=== PATIENT | female | born 1960 | race Caucasian/White ===

== ENCOUNTER 2018-04-01 12:59 | Inpatient (IN) | payer MEDICARE ==
[2018-04-01] MEDS ORDERED: Morphine 4 MG/ML VIAL ONE (13:18)
[2018-04-01] MEDS ORDERED: Metoprolol Tartrate 50 MG TAB ONE (13:59)
--- NOTE | 2018-04-01 14:02 | RAD ---
RADIOGRAPH CHEST 1 VIEW: Supine HISTORY: 57-year-old female status post acute chest trauma from fall. FINDINGS: There is no air space density, cardiomegaly, or pulmonary edema. The lateral costophrenic angles are sharp. Supine positioning makes this study insensitive for pneumothorax detection. IMPRESSION: No acute pulmonary findings. cristela [] POS: GENET
[2018-04-01] MEDS ORDERED: HYDROcodone/Acetaminophen 7.5/325 mg Tablet PO PRN ×2 (14:12→14:36)
[2018-04-01] MEDS ORDERED: hydrALAZINE 20 MG/ML VIAL SLOW IVP PRN (14:13)
[2018-04-01] MEDS ORDERED: Ondansetron ODT 4 MG TAB PO PRN (14:13)
[2018-04-01] MEDS ORDERED: Dextrose 50% Abboject 50 ML SYRINGE SLOW IVP PRN (14:13)
[2018-04-01] MEDS ORDERED: Ondansetron PF 4 MG/2 ML Vial IVP PRN (14:13)
[2018-04-01] MEDS ORDERED: Dextrose 5% in Water 1,000 ML IV PRN (14:13)
[2018-04-01] MEDS ORDERED: Morphine 2 MG/ML SYRINGE ONE (14:33)
[2018-04-01] MEDS ORDERED: Ketorolac Tromethamine 30 MG/ML VIAL ONE (14:33)
[2018-04-01] MEDS ORDERED: Fentanyl 100 MCG/2 ML VIAL SLOW IVP PRN (16:08)
[2018-04-01] MEDS ORDERED: CEFAZOLIN/Water 2 GM/20 ML SYRINGE SLOW IVP SCH (16:15)
[2018-04-01] MEDS ORDERED: CEFAZOLIN 2 GM/50 ML-DEXTROSE 2 GM in Premix Bag 1 BAG IVPB SCH (16:30)
[2018-04-01] MEDS: Morphine 2 MG/ML SYRINGE SLOW IVP PRN ×2 (16:57→22:35)
[2018-04-01 17:06] LABS: INR-International Normal Ratio 1.1; Prothrombin Time 13.9 SEC (12.0-14.7)
[2018-04-01 18:16] VITALS: BMI 19.4
[2018-04-01] MEDS: Ketorolac Tromethamine 30 MG/ML VIAL IVP SCH ×2 (18:28→20:12)
[2018-04-01] MEDS: HYDROcodone/Acetaminophen 7.5/325 mg Tablet PO SCH ×2 (18:28→21:11)
[2018-04-01 19:06] LABS: Bilirubin Negative (Negative); Blood, Urine Negative (Negative); Clarity CLOUDY (Clear); Glucose, Urine (Dipstick) Negative (Negative); Leukocyte Moderate (Negative); Nitrite Positive (Negative); Protein, Urine (Dipstick) Negative (Neg-Trace); Specific Gravity, Urine 1.007 (1.002-1.036); pH, Urine 6.5 (5.0-9.0)
[2018-04-01 19:07] LABS: Hyaline Casts/LPF 0-3 HYALINE CAST LPF (0-3 Hyaline); RBC/HPF 0-3 HPF (0-3); Squamous Epithelial 0-3 HPF (0-3)
[2018-04-01 19:16] LABS: Osmolality, Urine 233 mOsm/kg (300-900)
[2018-04-01 19:19] LABS: Bacteria/HPF 4+ HPF (None Seen)
[2018-04-01 19:29] LABS: Sodium, Urine 21 mmol/L (Not Available)
[2018-04-01] MEDS: Famotidine 20 MG TAB PO SCH (20:09)
--- NOTE | 2018-04-01 20:12 | HP ---
TRAUMA SURGEON: Dr. Antunez. TRAUMA ACTIVATION: Not applicable. HISTORY OF PRESENT ILLNESS: Nusrat Mina is a 57-year-old female, who presented to [facility] as a transfer from [place]. Per the patient, she was letting her dogs outside of their home, which has 5 steps down. She was on the second step and jumped off; however, her knee gave out and she fell landing on her right side. She denies head trauma or loss of consciousness. She was seen and evaluated in [facility] and found to have a right hip fracture. She was transferred to our facility for definitive care. Orthopedic Surgery has been notified and Trauma Service was asked to admit. Upon my evaluation, the patient has a chief complaint of 6/10 right hip discomfort. Relieved with pain medications and rest, worsened with movement. ALLERGIES: NONE. HOME MEDICATIONS: Include, 1. Metoprolol 50 mg p.o. daily. 2. Howard 5 mg/325 t.i.d. 3. Xanax 1 mg at bedtime. 4. Synthroid 112 mcg daily. PAST MEDICAL HISTORY: Hypertension, hypothyroidism, chronic bilateral knee pain, and anxiety. SURGICAL HISTORY: Right elbow surgery, gastric bypass, and cholecystectomy. SOCIAL HISTORY: Lives at home with her spouse. Endorses occasional alcohol use. She is a current smoker, 1 pack per day x45 years. Denies illicit drug use. FAMILY HISTORY: Significant for father from leukemia and mother of coronary artery disease and hypertension. REVIEW OF SYSTEMS: A 10-point review of systems was performed and negative except as indicated in the HPI. Specifically, the patient denied any fevers, chills, nausea, vomiting, dizziness, presyncopal symptoms, chest pain, shortness of breath, lethargy, or increasing fatigue as well as altered mental status. PHYSICAL EXAMINATION: VITAL SIGNS: On evaluation, temperature 98.8, pulse 71, respirations 16, O2 saturation 97% on room air, and blood pressure 176/111. GENERAL: Resting in bed, in no acute distress. HEENT: Head; normocephalic, atraumatic. Mucous membranes are mildly dry. NECK: Supple. Trachea is midline. There is no midline tenderness to palpation. CHEST: Atraumatic. Nontender to palpation. Normal work of breathing. Symmetric rise. LUNGS: Clear to auscultation bilaterally. CARDIOVASCULAR: Regular rate and rhythm. No obvious murmurs, rubs, or gallops. GI: Abdomen is soft, nontender, and nondistended. MUSCULOSKELETAL: Bilateral upper extremities within normal limits. Left lower extremity within normal limits. Right lower extremity is shortened and externally rotated. NEUROLOGIC: GCS is 15 and no focal deficit is noted. SKIN: Turgor is normal. LABORATORY FINDINGS: WBC 6.8, hemoglobin 15.8, hematocrit 43.1, and platelet count 153. Sodium 127, potassium 4.5, chloride 93, carbon dioxide 22, BUN 5, creatinine 0.65, and glucose 109. AST 78, ALT 70, and creatine kinase 204. Troponin less than 0.010. Serum osmolality 271. TSH 0.044 and free T4 of 1.38. RADIOGRAPHIC FINDINGS: Chest x-ray was negative for acute traumatic injury or cardiopulmonary process. X-ray of the hip with right intertrochanteric femur fracture. X-ray of the femur, official read is pending. X-ray of the pelvis, official read is pending, but demonstrates right intertrochanteric femur fracture. ASSESSMENT: 1. Status post mechanical fall. 2. Right hip fracture. 3. Acute traumatic pain. 4. Hyponatremia. 5. Elevated liver enzymes. 6. Elevated creatine kinase. 7. History of hypertension. 8. History of hypothyroidism. 9. History of chronic pain, on chronic narcotics. 10. History of anxiety. PLAN: Admit to Trauma Services. Orthopedic Surgery plans for operative intervention tomorrow. The patient should be n.p.o. after midnight. Pain control with p.o. and IV analgesics. Urine sodium and osmolality to help differentiate source of hyponatremia. A.m. labs, trend abnormal CK and liver enzymes. Postoperative PT and OT. DVT and gastritis prophylaxis as appropriate. Plan for admission was discussed with the patient and family at bedside. She is a full code. All questions were answered at the time of this dictation. Trauma attending has been notified of admission. Job ID: [id number]
[2018-04-01] MEDS: Sodium Chloride 0.9% 1,000 ML IV SCH ×2 (20:20→21:15)
--- NOTE | 2018-04-01 20:36 | HP ---
HISTORY OF PRESENT ILLNESS: She is a very pleasant 57-year-old woman who fell going down her steps today. She suffered a fracture of her femoral neck. PAST MEDICAL HISTORY: Positive for hypertension, gastric bypass, chronic pain. ALLERGIES: NONE. CURRENT MEDICATIONS: 1. Metoprolol. 2. Mcgregor. 3. Xanax. SOCIAL HISTORY: She does not smoke cigarettes, does not use illicit drugs, and drinks only occasionally. REVIEW OF SYSTEMS: Positive for hip pain. Negative for loss of consciousness, nausea, or vomiting. PHYSICAL EXAMINATION: GENERAL: Shows pleasant woman, in no distress. HEENT: Normocephalic and atraumatic. LUNGS: Clear. HEART: Regular. ABDOMEN: Soft and nontender. MUSCULOSKELETAL: Right hip external rotation. DIAGNOSTIC DATA: Radiographs show a displaced femoral neck fracture. PLAN: Total hip arthroplasty. She understands the risks of infection, blood clot, transfusion, , dislocation, and leg length inequality. She elected to proceed with surgery. Job ID: [id number]
[2018-04-01] MEDS: Senokot S 8.6-50 MG TAB PO SCH (21:12)
[2018-04-02] MEDS: HYDROcodone/Acetaminophen 7.5/325 mg Tablet PO SCH ×2 (01:57→12:15)
[2018-04-02] MEDS: Levothyroxine Sodium 112 MCG TAB PO SCH ×2 (01:59→05:57)
[2018-04-02] MEDS: Morphine 2 MG/ML SYRINGE SLOW IVP PRN ×2 (02:19→05:56)
[2018-04-02] MEDS: Ketorolac Tromethamine 30 MG/ML VIAL IVP SCH ×4 (02:20→20:13)
[2018-04-02 05:56] LABS: #Lymphocytes 1.2 thou/uL (1.20-3.40); #Monocytes 0.4 thou/uL (0.11-0.59); %Basophils 0.6 % (0.0-1.0); %Eosinophils 1.2 % (0.0-10.0); %Lymphocytes 32.2 % (21.0-51.0); %Monocytes 11.6 % (0.0-10.0); %Neutrophils 54.4 % (42.0-75.0); Hemoglobin 14.4 g/dL (12.0-16.0); Mean Corpuscular HGB CONC 34.5 g/dL (32.0-36.0); Mean Corpuscular Hemoglobin 34.1 pg (27.0-31.0); Mean Corpuscular Volume 98.9 fL (78.0-98.0); Mean Platelet Volume 7.5 fL (7.4-10.4); Platelet Count 128 thou/uL (130-400); RBC Distribution Width 11.1 % (11.5-14.5); Red Blood Cell (RBC) Count 4.22 mill/uL (4.20-5.40); White Blood Cell (WBC) Count 3.7 thou/uL (4.8-10.8)
[2018-04-02 06:13] LABS: Phosphorus 2.9 mg/dL (2.3-4.7)
[2018-04-02 06:15] LABS: ALT (SGPT) 59 U/L (8-55); AST (SGOT) 62 U/L (5-34); Albumin 3.6 g/dL (3.5-5.0); Alkaline Phosphatase 73 U/L (40-150); Anion Gap 10 mmol/L (10-20); BUN (Urea Nitrogen) 7 mg/dL (9.8-20.1); Bilirubin, Total 1.2 mg/dL (0.2-1.2); CK (CPK) 123 U/L (29-168); Calc. Creatinine Clearance 92 mL/min (70-130); Calcium 8.9 mg/dL (7.8-10.44); Carbon Dioxide 26 mmol/L (22-29); Chloride 101 mmol/L (98-107); Estimated GFR-MDRD Greater than 90; Globulin 3.6 g/dL (2.4-3.5); Glucose 97 mg/dL (70-105); Potassium 3.9 mmol/L (3.5-5.1); Protein, Total 7.2 g/dL (6.0-8.3); Sodium 133 mmol/L (136-145)
[2018-04-02] MEDS ORDERED: Vancomycin HCl 1 GM in Premix Bag 1 BAG IVPB SCH (07:00)
[2018-04-02] MEDS: Metoprolol Tartrate 50 MG TAB PO SCH ×2 (07:44→20:16)
[2018-04-02] MEDS ORDERED: CEFAZOLIN 2 GM/50 ML BAG ONE (08:04)
[2018-04-02] MEDS ORDERED: Fentanyl 100 MCG/2 ML VIAL ONE ×5 (08:04→11:33)
[2018-04-02] MEDS ORDERED: Tranexamic Acid 1,000 MG/10 ML VIAL ONE (08:34)
[2018-04-02] MEDS ORDERED: Sodium Chloride 0.9% 100 ML ONE (08:34)
[2018-04-02] MEDS ORDERED: HYDROcodone/Acetaminophen 10/325 mg Tablet PO PRN (08:51)
[2018-04-02] MEDS ORDERED: Ondansetron PF 4 MG/2 ML Vial IVP PRN (08:51)
[2018-04-02] MEDS ORDERED: diphenhydrAMINE 25 MG CAP PO PRN (08:51)
[2018-04-02] MEDS ORDERED: Acetaminophen 325 MG TAB PO PRN (08:51)
[2018-04-02] MEDS ORDERED: Zolpidem Tartrate 5 MG TAB PO PRN (08:51)
[2018-04-02] MEDS ORDERED: Promethazine HCl 25 MG/ML VIAL IM PRN ×3 (08:51→10:57)
[2018-04-02] MEDS ORDERED: CEFAZOLIN/Water 2 GM/20 ML SYRINGE SLOW IVP SCH (09:00)
[2018-04-02] MEDS ORDERED: Midazolam HCl 2 mg/2 ml Vial ONE (09:08)
[2018-04-02] MEDS ORDERED: PROPOFOL 200 MG/20 ML VIAL ONE (09:56)
[2018-04-02] MEDS ORDERED: Ondansetron PF 4 MG/2 ML Vial ONE (09:56)
[2018-04-02] MEDS ORDERED: Lidocaine 1% PF 5 ML VIAL ONE (09:56)
--- NOTE | 2018-04-02 10:12 | PRG ---
DATE OF SERVICE: Ms. Mina is admitted with right femoral neck fracture. Please see Brittany Sharif's full H and P for details. Plan is ORIF of right hip fracture today and then PT/OT after. Trauma will continue to follow. Job ID: [id number]
[2018-04-02] MEDS ORDERED: Promethazine HCl 25 MG/ML VIAL SLOW IVP PRN ×2 (10:54→10:57)
[2018-04-02] MEDS ORDERED: Ondansetron HCl/PF 4 MG/2 ML Vial IVP PRN ×2 (10:54→10:57)
[2018-04-02] MEDS ORDERED: HYDROmorphone 2 MG/ML VIAL SLOW IVP PRN (10:57)
[2018-04-02] MEDS ORDERED: PACU-Morphine 4MG/ML VIAL SLOW IVP PRN (10:57)
[2018-04-02] MEDS ORDERED: Promethazine HCl 25 MG/ML VIAL ONE (11:00)
[2018-04-02] MEDS ORDERED: HYDROmorphone 2 MG/ML VIAL ONE (11:10)
[2018-04-02] MEDS ORDERED: hydrALAZINE 20 MG/ML VIAL ONE (11:17)
--- NOTE | 2018-04-02 11:37 | RAD ---
TWO VIEWS OF THE RIGHT HIP: COMPARISON: 04/01/2018. HISTORY: Right hip arthroplasty after right femoral neck fracture. FINDINGS: Two views of the right hip show the patient to have undergone interval right hip prosthesis placement . There is no perihardware lucency or fracture. Air in the soft tissues is from recent surgery. IMPRESSION: Status post right hip arthroplasty without evidence of complication. POS: [place]
[2018-04-02 12:03] LABS: Bilirubin Negative (Negative); Blood, Urine Moderate (Negative); Clarity TURBID (Clear); Glucose, Urine (Dipstick) Negative (Negative); Leukocyte Large (Negative); Nitrite Positive (Negative); Protein, Urine (Dipstick) 30 mg/dL (Neg-Trace); Specific Gravity, Urine 1.009 (1.002-1.036); pH, Urine 7.5 (5.0-9.0)
[2018-04-02 12:11] LABS: Yeast-AUWi Flag 57.5 (0-25.0)
[2018-04-02] MEDS: Aspirin 81 mg Enteric Coated Tablet PO SCH ×2 (12:11→20:16)
[2018-04-02] MEDS: Ferrous Gluconate 324 MG TAB PO SCH ×2 (12:11→20:17)
[2018-04-02] MEDS: Famotidine 20 MG TAB PO SCH ×2 (12:11→20:15)
[2018-04-02] MEDS: Polyethylene Glycol 3350 17 GM Packet PO SCH (12:11)
[2018-04-02] MEDS: Senokot S 8.6-50 MG TAB PO SCH ×3 (12:11→20:15)
[2018-04-02] MEDS: Multivitamin W/ Minerals 1 TAB PO SCH (12:11)
[2018-04-02 12:12] LABS: Pathc Cast-AUWi Flag 17.47 (0-2.49)
[2018-04-02] MEDS: Sodium Chloride 0.9% 1,000 ML IV SCH ×2 (12:12→21:41)
[2018-04-02] MEDS: CEFAZOLIN 2 GM/50 ML-DEXTROSE 2 GM in Premix Bag 1 BAG IVPB SCH ×2 (12:12→17:35)
[2018-04-02 12:21] LABS: Hyaline Casts/LPF NONE SEEN LPF (0-3 Hyaline); Other Casts/LPF None Seen LPF (0-3 Hyaline)
[2018-04-02 12:22] LABS: Bacteria/HPF 2+ HPF (None Seen); Yeast-All Forms None Seen HPF (None Seen)
[2018-04-02] MEDS: HYDROcodone/Acetaminophen 10/325 mg Tablet PO PRN ×2 (13:32→17:35)
[2018-04-02] MEDS: Cyclobenzaprine 10 MG TAB PO PRN (13:39)
[2018-04-02] MEDS: ALPRAZolam 0.5 MG TAB PO SCH (20:16)
[2018-04-03] MEDS: Ketorolac Tromethamine 30 MG/ML VIAL IVP SCH ×4 (01:20→20:54)
[2018-04-03] MEDS: HYDROcodone/Acetaminophen 10/325 mg Tablet PO PRN ×5 (01:21→17:30)
[2018-04-03] MEDS: Levothyroxine Sodium 112 MCG TAB PO SCH ×2 (05:16→07:06)
[2018-04-03 06:44] LABS: Mean Corpuscular HGB CONC 34.2 g/dL (32.0-36.0); Mean Corpuscular Hemoglobin 34.3 pg (27.0-31.0); Mean Platelet Volume 7.7 fL (7.4-10.4); Platelet Count 97 thou/uL (130-400); Red Blood Cell (RBC) Count 3.21 mill/uL (4.20-5.40); White Blood Cell (WBC) Count 4.2 thou/uL (4.8-10.8)
[2018-04-03 07:02] LABS: Anion Gap 9 mmol/L (10-20); BUN (Urea Nitrogen) 5 mg/dL (9.8-20.1); Calc. Creatinine Clearance 100 mL/min (70-130); Calcium 8.4 mg/dL (7.8-10.44); Carbon Dioxide 26 mmol/L (22-29); Chloride 103 mmol/L (98-107); Estimated GFR-MDRD Greater than 90; Glucose 94 mg/dL (70-105); Magnesium 1.7 mg/dL (1.6-2.6); Phosphorus 3.3 mg/dL (2.3-4.7); Potassium 3.5 mmol/L (3.5-5.1); Sodium 134 mmol/L (136-145)
[2018-04-03] MEDS: Sodium Chloride 0.9% 1,000 ML IV SCH (07:23)
[2018-04-03] MEDS: Famotidine 20 MG TAB PO SCH ×2 (08:05→20:55)
[2018-04-03] MEDS: Cyclobenzaprine 10 MG TAB PO PRN (08:05)
[2018-04-03] MEDS: Senokot S 8.6-50 MG TAB PO SCH ×2 (08:05→20:54)
[2018-04-03] MEDS: ALPRAZolam 0.5 MG TAB PO SCH ×3 (08:05→20:55)
[2018-04-03] MEDS: Ferrous Gluconate 324 MG TAB PO SCH ×2 (08:05→20:55)
[2018-04-03] MEDS: Aspirin 81 mg Enteric Coated Tablet PO SCH ×2 (08:05→20:54)
[2018-04-03] MEDS: Polyethylene Glycol 3350 17 GM Packet PO SCH (08:05)
[2018-04-03] MEDS: Metoprolol Tartrate 50 MG TAB PO SCH ×3 (08:06→20:55)
[2018-04-03] MEDS: Multivitamin W/ Minerals 1 TAB PO SCH (08:06)
[2018-04-03] MEDS: Magnesium Oxide 400 MG TAB PO SCH ×2 (08:26→20:55)
[2018-04-03] MEDS ORDERED: traMADol HCl 50 MG TAB PO PRN ×2 (08:27)
[2018-04-03] MEDS: Nicotine 14 MG PATCH TD SCH (10:32)
--- NOTE | 2018-04-03 11:54 | PDOC.PN ---
- Subjective Encounter Start Date: 04/03/18 Encounter Start Time: 09:00 -: old records requested/rev history obtained, medical chart reviewed, today we are consulted for medical management Patient seen and examined. No new complaints. No overnight events - Objective Resuscitation Status - Order Detail: 04/01/18 14:13 Resuscitation Status Routine Co-Sign Provider: Resuscitation Status: FULL: Full Resuscitation Discussed with: pt BRICE Reviewed: Yes Vital Signs & Weight: Vital Signs (12 hours) Temp Pulse Resp BP Pulse Ox 04/03/18 07:50 97.9 F 67 16 152/89 H 95 04/03/18 04:35 98.5 F 69 20 130/78 96 04/03/18 00:22 98.2 F 73 20 128/68 95 Weight Weight 128 lb I&O: 04/02/18 04/03/18 04/04/18 06:59 06:59 06:59 Intake Total 1920 1380 2280 Output Total 8848 810 8912 Balance 70 580 -1095 Result Diagrams: 04/03/18 05:55 04/03/18 05:55 Radiology Reviewed by me: Yes Phys Exam - Physical Examination Constitutional: NAD HEENT: PERRLA, moist MMs, sclera anicteric Neck: no JVD, supple Respiratory: no wheezing, no rales, no rhonchi Cardiovascular: RRR, no significant murmur, no rub Gastrointestinal: soft, non-tender, no distention, positive bowel sounds Musculoskeletal: no edema, pulses present surgical site with dressing Neurological: non-focal, normal sensation, moves all 4 limbs Lymphatic: no nodes Psychiatric: normal affect, A&O x 3 Skin: no rash, normal turgor Dx/Plan (1) Fall Code(s): W19.XXXA - UNSPECIFIED FALL, INITIAL ENCOUNTER Status: Acute Qualifiers: Encounter type: subsequent encounter Qualified Code(s): W19.XXXD - Unspecified fall, subsequent encounter (2) Hip fracture, right Code(s): S72.001A - FRACTURE OF UNSP PART OF NECK OF RIGHT FEMUR, INIT Status : Acute (3) Chronic pain Code(s): G89.29 - OTHER CHRONIC PAIN Status: Chronic (4) Hyponatremia Code(s): E87.1 - HYPO-OSMOLALITY AND HYPONATREMIA Status: Acute (5) Hypothyroidism Code(s): E03.9 - HYPOTHYROIDISM, UNSPECIFIED Status: Chronic (6) Pancytopenia Code(s): D61.818 - OTHER PANCYTOPENIA Status: Acute (7) Transaminitis Code(s): R74.0 - NONSPEC ELEV OF LEVELS OF TRANSAMNS & LACTIC ACID DEHYDRGNSE Status: Acute (8) Anxiety disorder Code(s): F41.9 - ANXIETY DISORDER, UNSPECIFIED Status: Chronic (9) Hypertension Code(s): I10 - ESSENTIAL (PRIMARY) HYPERTENSION Status: Chronic (10) Tobacco abuse Code(s): Z72.0 - TOBACCO USE Status: Chronic (11) UTI (urinary tract infection) Status: Acute - Plan cont current plan of care, PT/OT * send urine culture * start rocephin for UTI * add folic acid, vitamin B12 for macrocytic anemia * repeat CMP and hepatitis profile tomorrow for her abnormal LFT and pancytopenia * continue PT * pain controlled * medication reviewed as below * symptomatic treatment. * continue aspirin as per protocol * counselled to avoid smoking Review of Systems - Review of Systems Constitutional: negative: fever, chills, sweats, weakness, malaise, other Eyes: negative: Pain, Vision Change, Conjunctivae Inflammation, Eyelid Inflammation, Redness, Other ENT: negative: Ear Pain, Ear Discharge, Nose Pain, Nose Discharge, Nose Congestion, Mouth Pain, Mouth Swelling, Throat Pain, Throat Swelling, Other Respiratory: negative: Cough, Dry, Shortness of Breath, Hemoptysis, SOB with Excertion, Pleuritic Pain, Sputum, Wheezing Cardiovascular: negative: chest pain, palpitations, orthopnea, paroxysmal nocturnal dyspnea, edema, light headedness, other Gastrointestinal: negative: Nausea, Vomiting, Abdominal Pain, Diarrhea, Constipation, Melena, Hematochezia, Other Genitourinary: negative: Dysuria, Frequency, Incontinence, Hematuria, Retention , Other Musculoskeletal: negative: Neck Pain, Shoulder Pain, Arm Pain, Back Pain, Hand Pain, Leg Pain, Foot Pain, Other Skin: negative: Rash, Lesions, Grady, Bruising, Other - Medications/Allergies Allergies/Adverse Reactions: Allergies Allergy/AdvReac Type Severity Reaction Status Date / Time No Known Drug Allergies Allergy Verified 04/01/18 14:20 Medications: Current Medications Acetaminophen (Tylenol) 650 mg PO Q4H PRN PRN Reason: Headache/Fever or Pain Hydrocodone Bitart/Acetaminophen (Drift 10/325) 1 tab PO Q4H PRN PRN Reason: Moderate Pain (4-6) Last Admin: 04/02/18 21:38 Dose: 1 tab Hydrocodone Bitart/Acetaminophen (Drift 10/325) 2 tab PO Q4H PRN PRN Reason: Severe Pain (7-10) Last Admin: 04/03/18 09:22 Dose: 2 tab Alprazolam (Xanax) 1 mg PO TID [facility] Last Admin: 04/03/18 08:05 Dose: 1 mg Aspirin (Ecotrin) 81 mg PO BID [facility] Last Admin: 04/03/18 08:05 Dose: 81 mg Cyclobenzaprine HCl (Flexeril) 5 mg PO TID PRN PRN Reason: Muscle Spasm Last Admin: 04/03/18 08:05 Dose: 5 mg Dextrose/Water (Dextrose 50%) 25 gm SLOW IVP PRN PRN PRN Reason: Hypoglycemia Diphenhydramine HCl (Benadryl) 25 mg PO Q6H PRN PRN Reason: Itching Famotidine (Pepcid) 20 mg PO BID [facility] Last Admin: 04/03/18 08:05 Dose: 20 mg Fentanyl (Sublimaze) 100 mcg SLOW IVP Q1H PRN PRN Reason: Moderate to Severe Pain (6-10) Ferrous Gluconate (Fergon) 324 mg PO BID [facility] Last Admin: 04/03/18 08:05 Dose: 324 mg Glucagon (Glucagon) 1 mg IM PRN PRN PRN Reason: Hypoglycemia Hydralazine HCl (Apresoline) 10 mg SLOW IVP Q6H PRN PRN Reason: SBP > 150 Dextrose/Water (D5w) 1,000 mls @ 0 mls/hr IV .Q0M PRN PRN Reason: Hypoglycemia Vancomycin HCl 1 gm/ Device 200 mls @ 200 mls/hr IVPB ONCALL-OR [facility] Stop: 04/03/18 12:00 Iron/Minerals/Multivitamins (Theragran M) 1 tab PO DAILY [facility] Last Admin: 04/03/18 08:06 Dose: 1 tab Ketorolac Tromethamine (Toradol) 30 mg IVP Q6H [facility] Stop: 04/06/18 14:13 Last Admin: 04/03/18 08:06 Dose: 30 mg Levothyroxine Sodium (Synthroid) 112 mcg PO 0600 [facility] Last Admin: 04/03/18 07:06 Dose: Not Given Levothyroxine Sodium (Synthroid) 112 mcg PO 0600 [facility] Last Admin: 04/03/18 05:16 Dose: 112 mcg Magnesium Oxide (Magnesium Oxide) 400 mg PO BID [facility] Stop: 04/05/18 09:01 Last Admin: 04/03/18 08:26 Dose: 400 mg Metoprolol Tartrate (Lopressor) 50 mg PO DAILY [facility] Last Admin: 04/03/18 08:06 Dose: 50 mg Metoprolol Tartrate (Lopressor) 50 mg PO BID [facility] Last Admin: 04/03/18 08:06 Dose: Not Given Morphine Sulfate (Morphine) 2 mg SLOW IVP Q4H PRN PRN Reason: severe breakthrough pain Last Admin: 04/02/18 05:56 Dose: 2 mg Nicotine (Nicoderm Patch) 14 mg TD Q24HR [facility] Last Admin: 04/03/18 10:32 Dose: 14 mg Ondansetron HCl (Zofran Odt) 4 mg PO Q6H PRN PRN Reason: Nausea/Vomiting Ondansetron HCl (Zofran) 4 mg IVP Q6H PRN PRN Reason: Nausea/Vomiting Polyethylene Glycol (Miralax) 17 gm PO DAILY [facility] Last Admin: 04/03/18 08:05 Dose: 17 gm Promethazine HCl (Phenergan) 12.5 mg IM Q4H PRN PRN Reason: Nausea/Vomiting Senna/Docusate Sodium (Senokot S) 2 tab PO BID [facility] Last Admin: 04/03/18 08:05 Dose: 2 tab Sodium Chloride (Flush - Normal Saline) 10 ml IVF PRN PRN PRN Reason: Saline Flush Tramadol HCl (Ultram) 50 mg PO Q4H PRN PRN Reason: Mild Pain (1-3) Tramadol HCl (Ultram) 100 mg PO Q4H PRN PRN Reason: Mild-Moderate Pain (1-5) Zolpidem Tartrate (Ambien) 5 mg PO HSPRN PRN PRN Reason: Insomnia
[2018-04-03] MEDS ORDERED: Sodium Chloride 0.65% Nasal 44 ML BOT EA NARE PRN (11:55)
[2018-04-03] MEDS ORDERED: Loperamide HCl 2 MG CAP PO PRN (11:55)
[2018-04-03] MEDS ORDERED: Diabetic Tussin 200 MG/10 ML UDCUP PO PRN (11:55)
[2018-04-03] MEDS ORDERED: Cepastat Lozenges 1 LOZ PO PRN (11:55)
[2018-04-03] MEDS ORDERED: Artificial Tears 18 DROP/0.9 ML EA EYE PRN (11:55)
[2018-04-03] MEDS ORDERED: Eucerin (Mineral Oil/Petrolatum,White) 30 gm Jar TOP PRN (11:55)
[2018-04-03] MEDS ORDERED: Benzonatate 100 MG CAP PO PRN (11:55)
--- NOTE | 2018-04-03 11:56 | OP ---
DATE OF PROCEDURE: 04/02/2018 PREOPERATIVE DIAGNOSIS: Femoral neck fracture, right. POSTOPERATIVE DIAGNOSIS: Femoral neck fracture, right. FORKLIFT TECHNICIAN: Coco Marks PA-C ESTIMATED BLOOD LOSS: 200. SPECIMEN: None. DRAINS: None. COMPLICATIONS: None. IMPLANTS USED: Accolade total hip stem, size 3 and -2.5 x 36 ceramic head, 52 mm PSL cup with a 36 mm X3 polyethylene liner. PROCEDURE IN DETAIL: After informed consent was obtained in the preoperative holding area, the patient was taken to the operative suite where general anesthesia was induced. The patient was then positioned in the lateral decubitus position. The hip was then prepped and draped in usual sterile fashion. The patient received preoperative antibiotics. Prior to incision, time-out was called and all members of the surgical team agreed upon site, surgeon, and patient. After this, a longitudinal incision was made directly over the trochanter, noted by palpation extending 2 fingerbreadths above and below the trochanter. The deeper subcutaneous layer was undermined with Bovie electrocautery. The iliotibial band was encountered and incised sharply and the plane below this was developed bluntly. A Charnley retractor was placed to hold this opened. The lateral aspect of the trochanter and the abductor muscles were encountered and then reflected anteriorly off the trochanter using Bovie electrocautery. Once this was completed, the anterior capsule was then encountered and identified and copious capsulotomy was carried out, exposing the femoral neck and head. Dislocation maneuver was then performed and an in situ provisional neck cut was then made using the oscillating saw. Attention was then turned to acetabular preparation and sequential reaming was carried out up to the appropriate diameter. A trial was then malleted into place with good firm resistance and no pullout. The permanent acetabular shell was then malleted squarely into place, as was the appropriate liner. Once completed, the wound was copiously irrigated and attention was then turned to femoral preparation. Flexion and external rotation were performed of the exposed thigh and femoral elevators were then placed at the proximal aspect of the wound. Canal finder was used to establish the length of the canal and sequential reaming was carried out, followed by broaching. Once the appropriate stability was established with the trial broaches with flexion, extension and rotational stability, we did trial with neutral and 2 mm offset incremental necks. Once the appropriate size was decided upon, with good stability noted with flexion, extension, internal and external rotation and shuck being negative, we removed the femoral trial broach and malletted into place the permanent prosthesis with good firm fit, which was also stable to rotation. Again, the hip felt very stable to flexion, extension, internal and external rotation. Leg lengths appeared near anatomic clinically and we were quite happy with prosthesis placement. Copious irrigation was then carried out through the entirety of the wound. Primary closure of the abductors was accomplished with interrupted #2 Vicryl [id number] stitches and the IT band was then closed with interrupted #2 Vicryl, oversewn with a #2 running barbed Quill stitch. Subcutaneous fascia was closed with running barbed Quill stitch and a subcuticular Monocryl barbed Quill stitch was used for skin closure and augmented with skin cement. A sterile dressing was applied. The procedure was terminated without any complication. All counts were correct. The patient was awakened in the operative suite and taken to the recovery room in stable condition. Job ID: [id number]
[2018-04-03] MEDS: cefTRIAXone\\ROCEPHIN 1 GM in Sodium Chloride 0.9% 100 ML IVPB SCH (13:33)
--- NOTE | 2018-04-03 16:09 | PRG ---
DATE OF SERVICE: 04/03/2018 SUBJECTIVE: The patient is hospital day #3, postop day #1, status post a fall downstairs, from which she sustained a right hip fracture. The patient has undergone open reduction and internal fixation of the same. She tolerated the procedure well and this morning has not yet started working with physical and occupational therapy. She is tolerating a diet. Her pain is controlled. PHYSICAL EXAMINATION: VITAL SIGNS: Temperature is 97.9, heart rate 67, blood pressure 152/89, respirations 16, and oxygen saturation 95% on room air. GENERAL: The patient is resting comfortably in bed. She is awake, alert, and oriented x3. Gracie Coma Scale is 15. HEENT: Unremarkable. LUNGS: Clear to auscultation with good inspiratory and expiratory effort. HEART: Regular rate and rhythm. ABDOMEN: Soft, flat, and nontender with active bowel sounds. PELVIS: Stable with clean, dry, and intact postop dressing. EXTREMITIES: Neurovascularly intact x4. LABORATORY FINDINGS: White blood cell count 4.2, hemoglobin 11.1, hematocrit 32.2, and platelets 97. Sodium 134, potassium 3.5, chloride 103, CO2 of 26, BUN 5, creatinine 0.56, glucose 94, magnesium 1.7, phosphorus 3.3. There are no radiographs reviewed this morning. ASSESSMENT AND PLAN: 1. Status post mechanical fall. 2. Status post open reduction and internal fixation of right hip fracture. Plan will be to continue supportive care, physical and occupational therapy, and placement will be discussed with the Case Management and we will have a rehab screen done. The evaluation and examination were done with Dr. Antunez during rounds this morning. Job ID: [id number]
[2018-04-04] MEDS: HYDROcodone/Acetaminophen 10/325 mg Tablet PO PRN ×3 (00:12→10:01)
[2018-04-04] MEDS: Ketorolac Tromethamine 30 MG/ML VIAL IVP SCH ×2 (01:50→09:29)
[2018-04-04 05:55] LABS: Mean Corpuscular HGB CONC 34.2 g/dL (32.0-36.0); Mean Corpuscular Hemoglobin 34.6 pg (27.0-31.0); Mean Platelet Volume 7.8 fL (7.4-10.4); Platelet Count 104 thou/uL (130-400); RBC Distribution Width 10.8 % (11.5-14.5); Red Blood Cell (RBC) Count 3.19 mill/uL (4.20-5.40); White Blood Cell (WBC) Count 4.7 thou/uL (4.8-10.8)
[2018-04-04] MEDS: Levothyroxine Sodium 112 MCG TAB PO SCH (06:01)
[2018-04-04 06:15] LABS: ALT (SGPT) 39 U/L (8-55); AST (SGOT) 60 U/L (5-34); Albumin 3.1 g/dL (3.5-5.0); Alkaline Phosphatase 57 U/L (40-150); Anion Gap 10 mmol/L (10-20); BUN (Urea Nitrogen) 5 mg/dL (9.8-20.1); Bilirubin, Total 0.6 mg/dL (0.2-1.2); Calc. Creatinine Clearance 100 mL/min (70-130); Calcium 8.4 mg/dL (7.8-10.44); Carbon Dioxide 28 mmol/L (22-29); Chloride 100 mmol/L (98-107); Estimated GFR-MDRD Greater than 90; Globulin 3.2 g/dL (2.4-3.5); Glucose 103 mg/dL (70-105); Potassium 3.5 mmol/L (3.5-5.1); Protein, Total 6.3 g/dL (6.0-8.3); Sodium 134 mmol/L (136-145)
[2018-04-04 06:30] LABS: HBCM Index 0.06 S/CO (0-0.79); HBSAg Index 0.27 S/CO (0-0.99); Hep A IgM AB Non-Reactive (NonReactive); Hep A IgM S/CO 0.17 S/CO (0-0.79); Hep B Surf Ag Non-Reactive S/CO (NonReactive); Hepatitis B Core IgM Abs Non-Reactive (NonReactive)
[2018-04-04 07:52] LABS: Hep C IgG Ab Reflex HepC Qnt (NonReactive)
[2018-04-04 08:00] LABS: Hep C Index 14.79 S/CO (0-0.79)
[2018-04-04] MEDS: Multivitamin W/ Minerals 1 TAB PO SCH (08:16)
[2018-04-04] MEDS: Ferrous Gluconate 324 MG TAB PO SCH (08:16)
[2018-04-04] MEDS: Polyethylene Glycol 3350 17 GM Packet PO SCH (08:16)
[2018-04-04] MEDS: Aspirin 81 mg Enteric Coated Tablet PO SCH (08:17)
[2018-04-04] MEDS: Metoprolol Tartrate 50 MG TAB PO SCH (08:17)
[2018-04-04] MEDS: ALPRAZolam 0.5 MG TAB PO SCH (08:17)
[2018-04-04] MEDS: Magnesium Oxide 400 MG TAB PO SCH (08:17)
[2018-04-04] MEDS: Famotidine 20 MG TAB PO SCH (08:17)
[2018-04-04] MEDS: Senokot S 8.6-50 MG TAB PO SCH (08:17)
[2018-04-04] MEDS ORDERED: Cyanocobalamin (Vitamin B-12) 1,000 MCG TAB PO SCH (09:00)
[2018-04-04] MEDS ORDERED: Folic Acid 1 MG TAB PO SCH (09:00)
[2018-04-04] MEDS: Nicotine 14 MG PATCH TD SCH (09:17)
--- NOTE | 2018-04-04 10:45 | PRG ---
DATE OF SERVICE: PROGRESS NOTE/TRANSFER OF CARE NOTE/SIGN OUT NOTE: PRIMARY CARE PHYSICIAN: [facility] Call admission. DISCHARGE DISPOSITION: Home. PRIMARY DISCHARGE DIAGNOSES: 1. Mechanical fall at home. 2. Right hip fracture, status post right hip replacement. 3. Hyponatremia. 4. Pancytopenia. 5. Abnormal LFT. 6. Chronic hepatitis C. 7. Urinary tract infection. SECONDARY DISCHARGE DIAGNOSES: Tobacco abuse disorder, hypothyroidism, hypertension, chronic pain disorder, anxiety disorder. PRIMARY PROCEDURE/OPERATION: Right hip replacement was performed by Dr. Wilcox. RADIOLOGICAL INVESTIGATION: Chest x-ray, unremarkable. Hip x-ray. SIGNIFICANT LABORATORY DATA: WBC 4.7, hemoglobin 11.0, platelets 104. INR 1.1. Sodium 134, creatinine 0.56, AST 60, ALT 39, alkaline phosphatase 57, albumin 3.1. Cardiac enzymes negative. Urinalysis suggestive of UTI. Hepatitis C positive. DISCHARGE MEDICATIONS: 1. Cipro 500 mg p.o. b.i.d. for 7 days. 2. Xanax 1 mg p.o. t.i.d. p.r.n. 3. Worden 10 one tablet t.i.d. p.r.n. 4. Synthroid 112 mcg p.o. daily. 5. Lopressor 50 mg p.o. b.i.d. 6. Aspirin 81 mg p.o. b.i.d. for DVT prophylaxis. 7. Ferrous gluconate 324 mg p.o. daily. 8. Folic acid 1 mg p.o. daily. 9. Vitamin B12 of 1000 mcg p.o. daily. CONTRAINDICATION: None. CODE STATUS: Full code. INPATIENT MANUFACTURING ELECTRICIAN: Trauma Team admitted this patient. Dr. Wilcox did right hip replacement. Sound Team was consulted for medical comanagement. TEST RESULTS PENDING ON DISCHARGE: None. ALLERGIES: NO KNOWN DRUG ALLERGIES. DISCHARGE PLAN: Posthospital, the patient will be discharged to home. Subsequently, the patient is advised to follow up with primary care physician. She will follow up with Dr. Wilcox as instructed. HOSPITAL COURSE: A 57-year-old female, who had mechanical fall. Subsequently, she had right hip fracture. She was evaluated in the emergency room and admitted under Trauma Team. Orthopedic physician, Dr. Wilcox did right hip replacement. We noticed that the patient has hyponatremia, pancytopenia, and abnormal LFT as well as her previous history of drug abuse and that is why we checked hepatitis profile, which showed to have chronic hepatitis C and that is why we advised her to follow up with primary care physician and threader operator for treatment. Her urinalysis was suggestive of UTI and that is why we treated her with Rocephin and on discharge, we prescribed Cipro for 7 more days. Currently, the patient is ambulatory, doing very well with physical therapy and she expressed her wish to go home. Primary team already planned for discharge later on today. The patient is seen and examined at bedside today. REVIEW OF SYSTEMS: All review of systems reviewed with her and negative. PHYSICAL EXAMINATION: VITAL SIGNS: Currently, temperature 97.9, pulse 75, respiratory rate 12, saturation 95% on room air, blood pressure 161/93, weight 128 pounds. GENERAL: The patient is currently alert, oriented, in no acute distress. HEENT: Head; normocephalic, atraumatic. Eyes; pupils round, reactive to light. Extraocular muscles intact. ENT: Oropharynx within normal limits. Moist mucous membranes. No oral lesion. No pharyngeal erythema. No exudate. NECK: Supple. No JVD. No thyromegaly. No carotid bruits. LUNGS: Clear to auscultation without any rhonchi. CARDIAC: S1 and S2. Regular without any murmur. ABDOMEN: Soft and benign. EXTREMITIES: No edema. NEUROLOGIC: Nonfocal examination. Job ID: [id number]
[2018-04-04] MEDS ORDERED: Acetaminophen 325 MG TAB PO SCH (12:00)
[2018-04-04 12:18] VITALS: BP 152/88; TEMP 98
[2018-04-04] MEDS: cefTRIAXone\\ROCEPHIN 1 GM in Sodium Chloride 0.9% 100 ML IVPB SCH (13:17)
--- NOTE | 2018-04-04 13:33 | EKG ---
Test Reason : FALL Blood Pressure : / mmHG Vent. Rate : 064 BPM Atrial Rate : 064 BPM P-R Int : 172 ms QRS Dur : 086 ms QT Int : 398 ms P-R-T Axes : 069 018 -02 degrees QTc Int : 410 ms Normal sinus rhythm Possible Left atrial enlargement Nonspecific ST and T wave abnormality Abnormal ECG Confirmed by ZACH HAQUE, ARUN ([id number]), editor city TERES[place] JOHNSON ([id number]) on 04/04/2018 1:32:57 PM Referred By: ZACH Confirmed By:ARUN SERRANO MD
[2018-04-04] MEDS ORDERED: Ibuprofen 600 MG TAB PO SCH (15:00)
--- NOTE | 2018-04-04 23:46 | DIS ---
DATE OF ADMISSION: 04/01/2018 DATE OF DISCHARGE: 04/04/2018 ADMISSION DIAGNOSES: 1. Status post mechanical fall. 2. Right hip fracture. 3. Multiple comorbidities. CONSULTATIONS: 1. Hospitalist Service, Dr. Dee. 2. Orthopedics, Dr. Wilcox. PROCEDURE: Open reduction and internal fixation of right femoral neck fracture. SUMMARY: The patient is a 57-year-old female who reportedly had a fall at home, who was taken initially to the emergency department at [place], where she underwent evaluation and examination and was noted to have the above and she will be transferred to our facility for admission and orthopedic evaluation. She would undergo her above procedure and tolerate it well. She would begin work with Physical and Occupational Therapy and progressed with them. At the time of discharge, the patient was ambulating with the use of a walker. Her pain was controlled. She was tolerating a diet and her bowel function had returned. The patient declined an inpatient rehab evaluation, then preferred and was accepted for home health assistance. At discharge, the patient was instructed to follow up with Dr. Wilcox in 2 weeks or sooner as needed. The patient may also follow up with the [facility] as needed. The patient is associated with the pain doctor and a pain contract and she was instructed to notify them of her medication use and changes that were made related to her injury. Job ID: [id number]
[2018-04-06 13:16] LABS: HCV log10 5.751 (.); Hep C PCR-Quant 564000 IU/mL (.)
== END 2018-04-04 13:15 | disposition home or self-care (01) | DRG 470 ==
LOC: ERS 12:59 → SURG B 14:09 → SURG A 04-04 09:35 → SURG B 04-04 09:39
PROVIDERS: ADMIT Surgery; ATTEND Surgery
PROC: 0SR904Z Replacement of Right Hip Joint with Ceramic on Polyethylene Synthetic Substitute, Open Approach (ICD-10-PCS; principal; 2018-04-01)
DX: S72.001A Fracture of unspecified part of neck of right femur, initial encounter for closed fracture (principal); E87.1 Hypo-osmolality and hyponatremia; D61.818 Other pancytopenia; N39.0 Urinary tract infection, site not specified; G89.29 Other chronic pain; W19.XXXA Unspecified fall, initial encounter; E03.9 Hypothyroidism, unspecified; F41.9 Anxiety disorder, unspecified; F17.210 Nicotine dependence, cigarettes, uncomplicated; I10 Essential (primary) hypertension; B18.2 Chronic viral hepatitis C
CPT/HCPCS: 36415; 51702; 71045; 80048; 80053; 80074; 81001; 81003; 81015; 82550; 83735; 83930; 83935; 84100; 84300; 84484; 85025; 85027; 85610; 87077; 87086; 87186; 87522; 93005; 96374; 96375; 96376; G0390; G8978-GP-CK; G8979-GP-CI; G8987-GO-CJ; G8988-GO-CI; J0360; J0696; J1170; J1885; J2001; J2250; J2270; J2405; J2550; J2704; J3010; J3370; J7050

== ENCOUNTER 2024-05-03 12:45 | Outpatient (CLI) | payer MEDICARE | END 2024-05-03 12:46 | disposition home or self-care (01) | LOC: ULT 12:45 | PROVIDERS: ATTEND Internal Medicine Gastroenterology | DX: E03.9 Hypothyroidism, unspecified (principal) | CPT/HCPCS: 76536 ==

== ENCOUNTER 2024-11-29 12:09 | Emergency (ER) | payer MEDICARE ==
[2024-11-29] MEDS ORDERED: oxyCODONE/Acetaminophen 5 mg/325 mg Tablet PO SCH (14:30)
== END 2024-11-29 14:57 | disposition home or self-care (01) ==
LOC: ERS 12:09
DX: M25.551 Pain in right hip (principal); G89.29 Other chronic pain; I10 Essential (primary) hypertension; F17.210 Nicotine dependence, cigarettes, uncomplicated; Z79.899 Other long term (current) drug therapy
CPT/HCPCS: 99283